=== PATIENT | female | born 1950 | race Caucasian/White ===

== ENCOUNTER 2016-08-27 12:21 | Day surgery (SDC) | payer OTHER ==
[~2016-08-27 12:21] MED LIST: CALCIUM 600 +1 EA12 PO; CYMBALTA60 M1 PO; LYRICA150 MG/CAP PO; MULTIVITAMINS1 EAC6 PO; PERCOCET 10-321 EACH PO
== END 2016-08-28 15:45 ==
LOC: SHSA 12:21 → ORE 14:30 → CAR1 19:30
PROC: 01N40ZZ Release Ulnar Nerve, Open Approach (ICD-10-PCS; principal; 2016-08-27)
PROC: 0PHK04Z Insertion of Internal Fixation Device into Right Ulna, Open Approach (ICD-10-PCS; 2016-08-27)
DX: S52.021K Displaced fracture of olecranon process without intraarticular extension of right ulna, subsequent encounter for closed fracture with nonunion (principal); K21.9 Gastro-esophageal reflux disease without esophagitis; G43.909 Migraine, unspecified, not intractable, without status migrainosus; G47.33 Obstructive sleep apnea (adult) (pediatric); M85.80 Other specified disorders of bone density and structure, unspecified site; M53.9 Dorsopathy, unspecified; Z79.899 Other long term (current) drug therapy; Z88.1 Allergy status to other antibiotic agents; Z87.891 Personal history of nicotine dependence; Z85.41 Personal history of malignant neoplasm of cervix uteri; Z98.890 Other specified postprocedural states; X58.XXXD Exposure to other specified factors, subsequent encounter
CPT/HCPCS: C1713; J0690; J2250; J3010